=== PATIENT | female | born 2005 | race African-American/Black ===

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

== ENCOUNTER 2023-05-19 11:49 | Emergency (ER) | payer BC, MEDICAID ==
[~2023-05-19] VITALS: Ht 157.4 cm; Wt 54.4 kg
[~2023-05-19 11:49] MED LIST changes: +CEFD300C3 PO; +PROM25SU44 RC
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
[2023-05-19] MEDS ORDERED: IBUPROFEN 800 MG TABLET PO ONE (12:15)
--- NOTE | 2023-05-19 12:36 | Diagnostic Imaging Report ---
Indication: Pain. Findings: 3 views of the left wrist performed. No fracture, dislocation or retained opaque foreign body. Impression: Unremarkable left wrist series. Dictated by: Dictated on workstation # [id number]
--- NOTE | 2023-05-19 12:37 | Diagnostic Imaging Report ---
indication: Forearm pain. Findings 2 view left forearm performed. No fracture or dislocation. Impression: Unremarkable left forearm films. Dictated by: Dictated on workstation # [id number]
[2023-05-19 13:00] VITALS: BP 124/92
[2023-05-19] MEDS ORDERED: HYDROcodone/ACETAMINOPHEN 5 MG/325 MG TABLET PO ONE (13:00)
== END 2023-05-19 13:02 | disposition home or self-care (01) ==
LOC: EDUNIT# 11:49 → ER 11:50
DX: S63.502A Unspecified sprain of left wrist, initial encounter (principal); H66.93 Otitis media, unspecified, bilateral; F17.290 Nicotine dependence, other tobacco product, uncomplicated; V89.2XXA Person injured in unspecified motor-vehicle accident, traffic, initial encounter; Y92.410 Unspecified street and highway as the place of occurrence of the external cause
CPT/HCPCS: 73090; 73110